=== PATIENT | male | born 1955 | race Caucasian/White ===

== ENCOUNTER 2020-10-20 12:07 | Emergency (ER) | payer MEDICARE ==
[~2020-10-20] VITALS: Ht 180.3 cm; Wt 96.0 kg
[2020-10-20] MEDS ORDERED: XARELTO10 MG PO (12:37)
[2020-10-20 13:05] LABS: HEMATOCRIT 42.1 % (39.0-50.0); HEMOGLOBIN 13.6 g/dl (14.0-18.0); IMMATURE GRANULOCYTES 0.3 % (0.0-5.0); MEAN CELL VOLUME 85.7 fL CALC (80.0-100.0); MEAN CORPUSCULAR HGB 27.7 pG CALC (26.0-32.0); MEAN CORPUSCULAR HGB CONC 32.3 g/dL CAL (32.0-36.0); NEUT# 1.94 thou/uL (1.82-7.42); RED BLOOD COUNT 4.91 mill/uL (4.70-6.10); RED CELL DISTRI WIDTH 12.6 % (11.5-15.5)
[2020-10-20 13:25] LABS: ALBUMIN 3.7 g/dL (3.2-5.0); ALKALINE PHOSPHATASE 85 u/l (38-126); ANION GAP 12 (6-22 (CALC)); BILIRUBIN, TOTAL 0.4 mg/dL (0.0-1.4); BUN 17 mg/dL (8-23); BUN/CREATININE RATIO 19 (12-20 (CALC)); CARBON DIOXIDE 27 mmol/l (22-30); CHLORIDE 102 mmol/l (95-108); CREATININE 0.9 mg/dL (0.7-1.3); GFR > 60 ML/MIN (>=60 (CALC)); GFR FOR AFR.AMER. > 60 ML/MIN (>=60 (CALC)); LIPASE 74 u/l (23-300); POTASSIUM 4.1 mmol/l (3.5-5.1); SGOT/AST 37 u/l (19-48); SODIUM 137 mmol/l (137-146); TOTAL PROTEIN 7.2 g/dL (6.3-8.2)
[2020-10-20] MEDS ORDERED: TAM75CAP PO (14:03)
[2020-10-20] MEDS ORDERED: VENTOLIN HFA IN (14:03)
[2020-10-20 14:17] VITALS: BP 122/70
== END 2020-10-20 14:17 | disposition home or self-care (01) ==
LOC: ED 12:07
DX: U07.1 COVID-19 (principal); J10.1 Influenza due to other identified influenza virus with other respiratory manifestations; Z86.718 Personal history of other venous thrombosis and embolism

== ENCOUNTER 2021-05-05 15:01 | Emergency (ER) | payer MEDICARE ==
[~2021-05-05] VITALS: Ht 180.3 cm; Wt 97.3 kg
[~2021-05-05 15:01] MED LIST: TAM75CAP PO; VENTOLIN HFA IN; XARELTO10 MG PO
[2021-05-05 16:50] VITALS: BP 127/54
== END 2021-05-05 17:02 | disposition left against medical advice (07) ==
LOC: ED 15:01
DX: R06.02 Shortness of breath (principal); Z91.19 Patient's noncompliance with other medical treatment and regimen; Z86.718 Personal history of other venous thrombosis and embolism; Z79.01 Long term (current) use of anticoagulants; Z20.822 Contact with and (suspected) exposure to COVID-19

== ENCOUNTER 2022-01-13 23:32 | Emergency (ER) | payer MEDICARE ==
[~2022-01-13] VITALS: Ht 180.3 cm; Wt 95.2 kg
[2022-01-14] VITALS (12 sets, daily range): BP systolic 109–128; BP diastolic 57–83
[2022-01-14] MEDS ORDERED: LIPITOR20 MG PO (00:39)
[2022-01-14 01:32] LABS: URINE BILIRUBIN - DIPSTICK NEGATIVE (NEGATIVE); URINE BLOOD DIPSTICK NEGATIVE (NEGATIVE); URINE COLOR YELLOW; URINE GLUCOSE - DIPSTICK NEGATIVE (NEGATIVE); URINE KETONE NEGATIVE (NEGATIVE); URINE LEUK ESTERASE NEGATIVE (NEGATIVE); URINE PROTEIN - DIPSTICK NEGATIVE (NEG-TRACE); URINE UROBILINOGEN - DIPSTICK 0.2 E.U./dL (0.2)
[2022-01-14 01:34] LABS: URINE NITRITE - DIPSTICK NEGATIVE (Negative)
[2022-01-14 01:46] LABS: HEMATOCRIT 46.2 % (39.0-50.0); HEMOGLOBIN 15.4 g/dl (14.0-18.0); IMMATURE GRANULOCYTES 0.1 % (0.0-5.0); MEAN CORPUSCULAR HGB 28.7 pG CALC (26.0-32.0); MEAN CORPUSCULAR HGB CONC 33.3 g/dL CAL (32.0-36.0); NEUT# 4.88 thou/uL (1.82-7.42); RED BLOOD COUNT 5.37 mill/uL (4.70-6.10); RED CELL DISTRI WIDTH 12.9 % (11.5-15.5)
[2022-01-14 02:02] LABS: ALKALINE PHOSPHATASE 81 u/l (38-126); ANION GAP 14 (6-22 (CALC)); BILIRUBIN, TOTAL 0.4 mg/dL (0.0-1.4); BUN 22 mg/dL (8-23); BUN/CREATININE RATIO 22 (12-20 (CALC)); CARBON DIOXIDE 27 mmol/l (22-30); CHLORIDE 105 mmol/l (95-108); GFR FOR AFR.AMER. > 60 ML/MIN (>=60 (CALC)); GFR OTHER RACES > 60 ML/MIN (>=60 (CALC)); POTASSIUM 4.4 mmol/l (3.5-5.1); SGOT/AST 31 u/l (19-48); SODIUM 141 mmol/l (137-146); TOTAL PROTEIN 8.3 g/dL (6.3-8.2)
[2022-01-14 02:03] LABS: ALBUMIN 4.6 g/dL (3.2-5.0)
== END 2022-01-14 06:11 | disposition home or self-care (01) ==
LOC: ED 23:32
PROVIDERS: Internal Medicine
DX: R00.2 Palpitations (principal); R53.1 Weakness; M79.10 Myalgia, unspecified site; Z86.718 Personal history of other venous thrombosis and embolism

== ENCOUNTER 2023-02-02 11:52 | Emergency (ER) | payer MEDICARE ==
[~2023-02-02] VITALS: Ht 180.3 cm; Wt 92.0 kg
[~2023-02-02 11:52] MED LIST changes: +LIPITOR20 MG PO
[2023-02-02 12:54] VITALS: BP 138/68
[2023-02-02 13:01] VITALS: BP 126/70
[2023-02-02 13:15] VITALS: BP 129/95
[2023-02-02 13:31] VITALS: BP 97/58
[2023-02-02 16:06] VITALS: BP 97/58
== END 2023-02-02 16:11 | disposition home or self-care (01) ==
LOC: ED 11:52
DX: H11.32 Conjunctival hemorrhage, left eye (principal); E78.5 Hyperlipidemia, unspecified; Z86.718 Personal history of other venous thrombosis and embolism; Z79.01 Long term (current) use of anticoagulants

== ENCOUNTER 2023-05-16 04:16 | Observation (INO) | payer MEDICARE ==
[2023-05-16] VITALS (21 sets, daily range): BP systolic 105–139; BP diastolic 47–103
[~2023-05-16] VITALS: Ht 175.3 cm; Wt 92.0 kg
[2023-05-16 04:59] LABS: BASO% 0.6 % (0-3); EOS% 2.2 % (0-8); HEMATOCRIT 40.9 % (39.0-50.0); HEMOGLOBIN 13.5 g/dl (14.0-18.0); IMMATURE GRANULOCYTES 0.7 % (0.0-5.0); LYMPH% 30.3 % (15-41); NEUT# 3.96 thou/uL (1.82-7.42); NEUT% 57.2 % (42-76); RED BLOOD COUNT 4.65 mill/uL (4.70-6.10); RED CELL DISTRI WIDTH 12.3 % (11.5-15.5)
[2023-05-16 05:20] LABS: ALBUMIN 3.7 g/dL (3.2-5.0); ALKALINE PHOSPHATASE 83 u/l (38-126); ANION GAP 9 (6-22 (CALC)); BILIRUBIN, TOTAL 0.5 mg/dL (0.2-1.3); BUN 17 mg/dL (8-23); BUN/CREATININE RATIO 18 (12-20 (CALC)); CARBON DIOXIDE 26 mmol/l (22-30); CHLORIDE 109 mmol/l (95-108); CREATININE 0.9 mg/dL (0.7-1.3); ETHYL ALCOHOL 0 mg/dl (0-30); GFR FOR AFR.AMER. > 60 ML/MIN (>=60 (CALC)); GFR OTHER RACES > 60 ML/MIN (>=60 (CALC)); POTASSIUM 4.3 mmol/l (3.5-5.1); SGOT/AST 26 u/l (19-48); SODIUM 139 mmol/l (137-146)
[2023-05-16 05:29] LABS: TOTAL PROTEIN 6.4 g/dL (6.3-8.2)
[2023-05-17] VITALS (8 sets, daily range): BP systolic 112–137; BP diastolic 59–66
[2023-05-17 05:15] LABS: BASO% 0.6 % (0-3); HEMATOCRIT 39.8 % (39.0-50.0); HEMOGLOBIN 13.4 g/dl (14.0-18.0); IMMATURE GRANULOCYTES 0.2 % (0.0-5.0); LYMPH% 29.3 % (15-41); MEAN CELL VOLUME 88.1 fL CALC (80.0-100.0); MEAN CORPUSCULAR HGB 29.6 pG CALC (26.0-32.0); MEAN CORPUSCULAR HGB CONC 33.7 g/dL CAL (32.0-36.0); MONO% 8.2 % (2-13); NEUT# 3.91 thou/uL (1.82-7.42); NEUT% 59.7 % (42-76); RED BLOOD COUNT 4.52 mill/uL (4.70-6.10); RED CELL DISTRI WIDTH 12.6 % (11.5-15.5)
[2023-05-17 05:40] LABS: ANION GAP 8 (6-22 (CALC)); BUN 21 mg/dL (8-23); BUN/CREATININE RATIO 21 (12-20 (CALC)); C-REACTIVE PROTEIN 0.9 mg/dL (0-0.9); CALCULATED LDLCHOLESTEROL 145 mg/dL (62-129 (CALC)); CARBON DIOXIDE 26 mmol/l (22-30); CHLORIDE 109 mmol/l (95-108); CHOLESTEROL HDL RATIO 4.7 (<4.4 (CALC)); GFR FOR AFR.AMER. > 60 ML/MIN (>=60 (CALC)); GFR OTHER RACES > 60 ML/MIN (>=60 (CALC)); HDL CHOLESTEROL 44 mg/dL (39.0-59.0); POTASSIUM 4.2 mmol/l (3.5-5.1); SODIUM 139 mmol/l (137-146); TOTAL CHOLESTEROL 209 mg/dl (0-199); TOTAL TRIGLYCERIDES 98 mg/dl (0-149); VLDL CHOLESTROL 20 mg/dl (4-45 (CALC))
[2023-05-17 07:40] LABS: URINE BILIRUBIN - DIPSTICK Negative (NEGATIVE); URINE BLOOD DIPSTICK Negative (NEGATIVE); URINE GLUCOSE - DIPSTICK Negative (NEGATIVE); URINE KETONE Negative (NEGATIVE); URINE LEUK ESTERASE Negative (NEGATIVE); URINE NITRITE - DIPSTICK Negative (Negative); URINE PH 5.5 (4.5-8.0); URINE PROTEIN - DIPSTICK Negative (NEG-TRACE); URINE SPECIFIC GRAVITY 1.025; URINE UROBILINOGEN - DIPSTICK 0.2 E.U./dL (0.2)
[2023-05-17 07:43] LABS: URINE COLOR Yellow
[2023-05-18 04:19] VITALS: BP 113/54
[2023-05-18 04:57] VITALS: BP 113/54
[2023-05-18 05:31] LABS: BASO% 0.6 % (0-3); EOS% 2.8 % (0-8); HEMATOCRIT 42.7 % (39.0-50.0); HEMOGLOBIN 14.4 g/dl (14.0-18.0); IMMATURE GRANULOCYTES 0.1 % (0.0-5.0); LYMPH% 27.5 % (15-41); MEAN CELL VOLUME 87.7 fL CALC (80.0-100.0); MEAN CORPUSCULAR HGB 29.6 pG CALC (26.0-32.0); MEAN CORPUSCULAR HGB CONC 33.7 g/dL CAL (32.0-36.0); NEUT# 4.28 thou/uL (1.82-7.42); RED BLOOD COUNT 4.87 mill/uL (4.70-6.10); RED CELL DISTRI WIDTH 12.4 % (11.5-15.5)
[2023-05-18 05:46] VITALS: BP 119/64
[2023-05-18 05:47] VITALS: BP 122/59; BP 126/62
[2023-05-18 05:48] LABS: BUN 19 mg/dL (8-23); BUN/CREATININE RATIO 23 (12-20 (CALC)); CHLORIDE 110 mmol/l (95-108); CREATININE 0.9 mg/dL (0.7-1.3); GFR FOR AFR.AMER. > 60 ML/MIN (>=60 (CALC)); GFR OTHER RACES > 60 ML/MIN (>=60 (CALC)); POTASSIUM 4.2 mmol/l (3.5-5.1); SODIUM 138 mmol/l (137-146)
[2023-05-18 05:56] LABS: ANION GAP 12 (6-22 (CALC)); CARBON DIOXIDE 20 mmol/l (22-30)
[2023-05-18 07:20] VITALS: BP 106/63
[2023-05-18] MEDS ORDERED: ATORVASTATIN CA40 MG PO (13:41)
== END 2023-05-18 15:42 | disposition home or self-care (01) ==
LOC: ED 04:16 → ED-I 07:00 → ED 07:29 → MS2 07:30 → ED-I 07:30 → MS2 12:00
PROVIDERS: Family Medicine; ADMIT Student in an Organized Health Care Education/Training Program; ATTEND Student in an Organized Health Care Education/Training Program
DX: R55 Syncope and collapse (principal); R51.9 Headache, unspecified; S00.12XA Contusion of left eyelid and periocular area, initial encounter; H11.32 Conjunctival hemorrhage, left eye; E04.1 Nontoxic single thyroid nodule; R90.89 Other abnormal findings on diagnostic imaging of central nervous system; W18.30XA Fall on same level, unspecified, initial encounter; Z90.49 Acquired absence of other specified parts of digestive tract; Z86.718 Personal history of other venous thrombosis and embolism; Z79.01 Long term (current) use of anticoagulants
CPT/HCPCS: Q9967